=== PATIENT | male | born 1970 ===

== ENCOUNTER 2024-04-01 16:32 | Emergency (ER) | payer SELFPAY ==
[2024-04-01] MEDS: ceFAZolin 2 GM in Sodium Chloride 0.9% 50 ML IV ONE (19:44)
[2024-04-01] MEDS: Lidocaine 1% 10 ML MDV INJECT ONE (19:45)
[2024-04-01] MEDS: Bupivacaine 0.5% 10 ML SDV INJECT ONE (19:45)
== END 2024-04-01 21:35 | disposition home or self-care (01) ==
LOC: JD.ED 16:32
DX: S62.521B Displaced fracture of distal phalanx of right thumb, initial encounter for open fracture (principal); X58.XXXA Exposure to other specified factors, initial encounter; Y99.0 Civilian activity done for income or pay; Y92.89 Other specified places as the place of occurrence of the external cause
CPT/HCPCS: 12002; 73140; 96365; 99283; J0665; J0690; J3490